=== PATIENT | male | born 1960 | race Hispanic/Latino ===

== ENCOUNTER 2017-03-10 12:55 | Emergency (ER) | payer BC ==
[~2017-03-10] VITALS: Ht 172.7 cm; Wt 89.0 kg
[~2017-03-10 12:55] MED LIST: FLEXERIL PO; GLUCOPHAGE850 MG PO; GLYBURID MCR1.5 MG PO; LORTAB 5 OR; METFORMIN850 MG PO; PRAVACHOL20 MG PO; ULTRAM50 M1 PO
[2017-03-10] MEDS ORDERED: TRESIBA FL100 UNIT/M SC (13:06)
[2017-03-10] MEDS ORDERED: MOTRIN400 MG PO (13:44)
[2017-03-10 13:54] VITALS: BP 130/70
== END 2017-03-10 13:53 | disposition home or self-care (01) | DRG 556 ==
LOC: ED 12:55
DX: M25.531 Pain in right wrist (principal); E11.9 Type 2 diabetes mellitus without complications; W19.XXXA Unspecified fall, initial encounter; Y92.009 Unspecified place in unspecified non-institutional (private) residence as the place of occurrence of the external cause